=== PATIENT | female | born 1960 | race Asian ===

== ENCOUNTER 2017-05-27 15:44 | Emergency (ER) | payer OTHER ==
[2017-05-27 16:11] VITALS: BP 104/63
== END 2017-05-27 17:13 | disposition home or self-care (01) ==
LOC: ED 15:44
DX: S63.612A Unspecified sprain of right middle finger, initial encounter (principal); W22.8XXA Striking against or struck by other objects, initial encounter; Y93.89 Activity, other specified; Y92.89 Other specified places as the place of occurrence of the external cause; Y99.8 Other external cause status

== ENCOUNTER 2018-09-13 21:40 | Emergency (ER) | payer OTHER ==
[2018-09-13 23:40] VITALS: BP 117/72
== END 2018-09-13 23:40 | disposition home or self-care (01) ==
LOC: ED 21:40
DX: S99.921A Unspecified injury of right foot, initial encounter (principal); W20.8XXA Other cause of strike by thrown, projected or falling object, initial encounter; Y93.89 Activity, other specified; Y92.89 Other specified places as the place of occurrence of the external cause; Y99.8 Other external cause status

== ENCOUNTER 2018-10-21 13:03 | Emergency (ER) | payer BC ==
[~2018-10-21] VITALS: Ht 165.1 cm; Wt 48.1 kg
[2018-10-21 13:20] VITALS: Ht 165.1 cm; Wt 48.1 kg
[2018-10-21 14:12] LABS: BASOPHIL % 0.3 % (0-2); PLATELET COUNT 200 x10^3mcL (130-400)
[2018-10-21 14:21] LABS: CALCIUM 9.2 mg/dL (8.5-10.1); CARBON DIOXIDE 28.7 mmol/L (21-32); CHLORIDE SERUM 104 mmol/L (98-107); CREATININE SERUM 0.7 mg/dL (0.6-1.0); GFR1 > 60 mL/min; GLUCOSE SERUM 120 mg/dL (74-106); POTASSIUM SERUM 3.4 mmol/L (3.5-5.1); SODIUM SERUM 141 mmol/L (136-145)
[2018-10-21 14:26] LABS: ALBUMIN 3.8 g/dL (3.4-5.0); ALKALINE PHOSPHATASE 71 U/L (46-116); ALT/SGPT 47 U/L (14-59); AST/SGOT 17 U/L (15-37); BILIRUBIN TOTAL 0.2 mg/dL (0.20-1.00); CHOLESTEROL 158 mg/dL (<200); CHOLESTEROL/HDL RATIO 3.6; HDL CHOLESTEROL 44 mg/dL (40-60); TOTAL PROTEIN, SERUM 7.8 g/dL (6.4-8.2); TRIGLYCERIDES 86 mg/dL (<150)
[2018-10-21 18:10] VITALS: BP 135/80
== END 2018-10-21 18:10 | disposition home or self-care (01) ==
LOC: ED 13:03
PROVIDERS: Emergency Medicine
DX: M25.512 Pain in left shoulder (principal); R07.2 Precordial pain; Z98.890 Other specified postprocedural states
CPT/HCPCS: 85378; J1885; J7030; Q0092